=== PATIENT | male | born 1985 | race Two or more races ===

== ENCOUNTER 2016-02-29 21:20 | Emergency (ER) | payer OTHER ==
[2016-02-29] MEDS ORDERED: ALBUTEROL/IPRATROPIUM 2.5/0.5 MG 3 ML/EACH DOSE ONE (23:10)
[2016-02-29 23:37] LABS: BASO # 0.1 K/mm3 (0.0-0.2); BASO % 0.4 % (0.2-1.0); EOS # 0.2 (0.0-0.5); EOS % 1.5 % (0.9-2.9); HEMOGLOBIN 15.1 gm/l (14.0-18.0); IMM NEUT% 0.4 % (0-1); LYMPH # 2.4 (1.0-4.8); MEAN CELL VOLUME 85.6 fl (80.0-94.0); MEAN CORPUSCULAR HEMOGLOBIN 29.4 pg (27.0-31.0); MEAN CORPUSCULAR HGB CONC 34.3 g/dl (33.0-37.0); MEAN PLATELET VOLUME 9.7 fl (7.4-10.4); MONO # 0.8 (0.0-0.8); MONO % 6.6 % (4-12); NEUT % 70.1 % (43-75); PLATELET COUNT 323 K/mm3 (130-400); RED CELL DISTRIBUTION WIDTH 12.5 % (11.5-14.5)
[2016-02-29 23:50] LABS: ALB/GLOB RATIO 1.5 (>1.0); CALCIUM 9.3 mg/dL (8.6-10.3)
--- NOTE | 2016-03-01 07:56 | RAD ---
Exam: Two-view chest COMPARISON: None INDICATION: Chest pressure, worse with cough. Hard to breathe. FINDINGS: PA and lateral views of the chest were obtained. Cardiac silhouette is within normal limits. Lung volumes are somewhat low. There is no pulmonary edema, focal airspace disease or pleural effusion. Bones of the chest wall within normal limits. IMPRESSION: No acute pulmonary process.
== END 2016-03-01 01:08 | disposition home or self-care (01) ==
LOC: ED 21:20
DX: R07.9 Chest pain, unspecified (principal); R05 Cough